=== PATIENT | female | born 1960 | race Caucasian/White ===

== ENCOUNTER 2018-12-11 09:18 | Day surgery (SDC) | payer OTHER ==
[2018-12-10 14:44] VITALS: BMI 34.6
[2018-12-11 11:16] VITALS: TEMP 98
[2018-12-11 14:33] VITALS: BP 122/71; PULSE 71
--- NOTE | 2018-12-14 20:00 | PATH ---
Surgical Pathology Report Patient Name: CARLOS CARNEY [facility]. Rec. #: [id number] /Age/Gender: 1960 (Age: 58) / F Account: [id number] Location: U-ENDOSCOPY Taken: 12/11/2018 Received: 12/11/2018 Reported: 12/14/2018 Physicians: Yu Abarca M.D. Specimen(s) Received A: POLYP ANASTOMOSIS B: AFFERENT LOOP C: ANASTOMOSIS Clinical History History of GERD with Cruz's, history of colon adenoma, abdominal pain, rule out ulcer Postoperative diagnosis: Gastric bypass anastomosis, anastomotic polyp, GERD, diverticulosis Final Diagnosis A. ANASTOMOTIC POLYP, BIOPSY: POLYPOID GASTRIC BODY MUCOSA WITH MILD CHRONIC GASTRITIS. IMMUNOHISTOCHEMICAL STAIN FOR H. PYLORI IS NEGATIVE. B. AFFERENT LOOP, BIOPSY: SMALL BOWEL MUCOSA WITHOUT SIGNIFICANT PATHOLOGIC FINDINGS. C. ANASTOMOSIS, BIOPSY: GASTRIC MUCOSA WITH MODERATE TO SEVERE CHRONIC GASTRITIS. IMMUNOHISTOCHEMICAL STAIN FOR H. PYLORI IS NEGATIVE. DETACHED SQUAMOUS MUCOSA WITH MODERATE BASAL CELL HYPERPLASIA Electronically Signed Elena Azar M.D. Gross Description A. Received in formalin, labeled "anastomotic polyp" are 2 lomax, irregular portions of soft tissue measuring 0.1 and 0.2 cm. in greatest dimension. The specimens are submitted in toto in one cassette. B. Received in formalin, labeled "aferrent loop" are 3 lomax, irregular portions of soft tissue measuring 0.1 and 0.3 cm. in greatest dimension. The specimens are submitted in toto in one cassette. C. Received in formalin, labeled "BX anastomosis" are 5 lomax, irregular portions of soft tissue measuring 0.1 and 0.2 cm. in greatest dimension. The specimens are submitted in toto in one cassette. MLSZ/12/11/2018 sanml/12/11/2018
== END 2018-12-11 12:23 | disposition home or self-care (01) ==
LOC: JASU-ENDO 09:18
PROVIDERS: ATTEND Internal Medicine Gastroenterology
PROC: 0DB68ZX Excision of Stomach, Via Natural or Artificial Opening Endoscopic, Diagnostic (ICD-10-PCS; 2018-12-11)
PROC: 0DJD8ZZ Inspection of Lower Intestinal Tract, Via Natural or Artificial Opening Endoscopic (ICD-10-PCS; principal; 2018-12-11 10:00)
DX: Z12.11 Encounter for screening for malignant neoplasm of colon (principal); Z86.010 Personal history of colon polyps; K57.30 Diverticulosis of large intestine without perforation or abscess without bleeding; K64.8 Other hemorrhoids; K63.89 Other specified diseases of intestine; R10.13 Epigastric pain; Z98.84 Bariatric surgery status; K21.9 Gastro-esophageal reflux disease without esophagitis; K44.9 Diaphragmatic hernia without obstruction or gangrene; E11.9 Type 2 diabetes mellitus without complications; Z79.84 Long term (current) use of oral hypoglycemic drugs; E03.9 Hypothyroidism, unspecified
CPT/HCPCS: 43239; G0105; 82962

== ENCOUNTER 2020-04-14 04:53 | Day surgery (SDC) | payer OTHER ==
[2020-04-13 12:24] VITALS: BMI 33.1
[2020-04-14] MEDS ORDERED: TRIAMCINOLONE ACET 40MG/1ML VIAL ONE (07:23)
[2020-04-14] MEDS ORDERED: LIDOCAINE HCL 1%, 10 MG/ML (20ML VIAL) ONE (07:24)
[2020-04-14] MEDS ORDERED: BUPIVACAINE HCL/PF 0.75% 10 ML VIAL ONE (07:26)
[2020-04-14] MEDS ORDERED: MIDAZOLAM HCL 2 MG/2 ML SINGLE DOSE VIAL ONE ×2 (08:05→08:20)
[2020-04-14] MEDS ORDERED: SUCCINYLCHOLINE CHLORIDE 200 MG/10 ML SYRINGE ONE (08:05)
[2020-04-14] MEDS ORDERED: PROPOFOL 20 ML ONE ×2 (08:05→08:18)
--- NOTE | 2020-04-14 08:07 | HP ---
Admitting History and Physical - Admission Chief Complaint: Left Low back pain History of Present Illness: Pt complains of left buttock and low back pain - Past Medical History ...LMP: 11/14/11 - Smoking History Smoking history: Former smoker Have you smoked in the past 12 months: No Aproximately how many cigarettes per day: 10 If you are a former smoker, when did you quit?: 2014 - Alcohol/Substance Use Hx Alcohol Use: Yes (SOCIAL) Home Medications - Allergies Allergies/Adverse Reactions: Allergies Allergy/AdvReac Type Severity Reaction Status Date / Time No Known Allergies Allergy Verified 05/31/13 08:10 - Home Medications Home Medications: Ambulatory Orders Simvastatin [Zocor] 20 mg PO DAILY 12/04/11 Zolpidem Tartrate [Ambien] 10 mg PO DAILY 12/04/11 Amlodipine Besylate [Norvasc -] 5 mg PO DAILY 05/31/13 Exenatide Microspheres [Bydureon Pen] 2 mg SUBCON WEEKLY 12/10/18 LORazepam [Ativan] 1 mg PO DAILY 12/10/18 metFORMIN HCL [Metformin HCl] 500 mg PO BID 12/10/18 Losartan Potassium 100 mg PO DAILY 12/11/18 Mag Carb/Aluminum Hydrox/Algin [Gaviscon Liquid] 30 ml PO Q4H PRN #355 oz 12/11/18 Levothyroxine [Synthroid -] 224 mcg PO DAILY 04/13/20 Pantoprazole Sodium 40 mg PO DAILY 04/13/20 Review of Systems - Review of Systems Constitutional: reports: No Symptoms Eyes: reports: No Symptoms HENT: reports: No Symptoms Neck: reports: No Symptoms Cardiovascular: reports: No Symptoms Respiratory: reports: No Symptoms Gastrointestinal: reports: No Symptoms Genitourinary: reports: No Symptoms Breasts: reports: No Symptoms Reported Musculoskeletal: reports: Back Pain Integumentary: reports: No Symptoms Neurological: reports: No Symptoms Endocrine: reports: No Symptoms Hematology/Lymphatic: reports: No Symptoms Psychiatric: reports: No Symptoms Physical Examination Vital Signs: Vital Signs Temperature 98.0 F 04/14/20 06:59 Pulse Rate 87 04/14/20 06:59 Respiratory Rate 16 04/14/20 06:59 Blood Pressure 148/52 L 04/14/20 06:59 O2 Sat by Pulse Oximetry (%) 99 04/14/20 06:59 Constitutional: Yes: Well Nourished, No Distress, Calm Eyes: Yes: Conjunctiva Clear, EOM Intact HENT: Yes: Atraumatic, Normocephalic Neck: Yes: Trachea Midline Cardiovascular: Yes: Regular Rate and Rhythm Respiratory: Yes: Regular Gastrointestinal: Yes: Soft Breast(s): Yes: WNL Musculoskeletal: Yes: Back Pain Extremities: Yes: WNL Neurological: Yes: WNL ...Motor Strength: WNL Imaging - Results X-ray: Report Reviewed, Image Reviewed Assessment/Plan 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 I will perform left SIJ injection under fluoroscopic guidance.
[2020-04-14] MEDS ORDERED: LIDOCAINE HCL 1%, 10 MG/ML (20ML VIAL) INF ONE (08:24)
[2020-04-14] MEDS ORDERED: IOHEXOL 180 MG/1 ML ML IJ ONE (08:25)
[2020-04-14] MEDS ORDERED: BUPIVACAINE HCL/PF 0.5% (5 MG/ML) 30 ML VIAL IJ ONE (08:27)
[2020-04-14] MEDS ORDERED: TRIAMCINOLONE ACET 40MG/1ML VIAL IM ONE (08:27)
--- NOTE | 2020-04-14 08:34 | PROC ---
Procedure Note Procedure: Pre procedure Diagnosis: Sacroilliac Joint Dysfunction Post Procedure Diagnosis: same Anesthesia: local Procedure Performed: Left Sacroilliac Joint Injection Under Fluoroscopic Guidance After the risks and benefits were explained, informed consent was obtained. The patient was then taken to the procedure room and positioned prone on the procedure table. Time out was performed. The region overlying the Left sacroiliac joint was identified using fluoroscopy. The skin was prepped and draped in the usual sterile fashion. The skin and soft tissues were anesthetized using 2% lidocaine. Using fluoroscopic guidance, a 22 gauge 3.5 inch spinal needle was then introduced to the inferior aspect of the posterior Right sacroiliac joint. Omnipaque 180 confirmed appropriate needle placement. 1 cc .5% bupivacaine and 1 cc Kenalog was then injected. The patient tolerated the procedure well and there were no complications. The patient was taken to the post procedure recovery area in good condition. Vital signs remained stable before, during, and after the procedure. The patient was given oral and written follow-up instructions. The patient was given a follow up appointment with me in the near future. Joe Davis DO
[2020-04-14] MEDS ORDERED: oxyCODONE HCL 5 MG TABLET PO PRN ×2 (08:41)
[2020-04-14] MEDS ORDERED: ACETAMINOPHEN 325 MG TABLET (FP) PO PRN (08:41)
[2020-04-14] MEDS ORDERED: ONDANSETRON 4 MG/2 ML VIAL IVPUSH PRN (08:41)
[2020-04-14] MEDS ORDERED: LACTATED RINGERS SOLUTION 1,000 ML IV SCH (08:45)
[2020-04-14 09:26] VITALS: BP 121/71; PULSE 73; TEMP 97.3
== END 2020-04-14 09:43 | disposition home or self-care (01) ==
LOC: JASU-SURG 04:53
PROVIDERS: ATTEND Pain Medicine Pain Medicine
PROC: 3E0U3BZ Introduction of Anesthetic Agent into Joints, Percutaneous Approach (ICD-10-PCS; 2020-04-14)
PROC: 3E0U33Z Introduction of Anti-inflammatory into Joints, Percutaneous Approach (ICD-10-PCS; principal; 2020-04-14 08:00)
DX: M53.3 Sacrococcygeal disorders, not elsewhere classified (principal); M54.5 Low back pain; M25.552 Pain in left hip; M41.27 Other idiopathic scoliosis, lumbosacral region
CPT/HCPCS: 76000-TC-FY

== ENCOUNTER 2020-04-21 06:45 | Day surgery (SDC) | payer OTHER ==
[2020-04-21] MEDS ORDERED: FERRIC CARBOXYMALTOSE 750 MG in SODIUM CHLORIDE 250 ML IVPB ONE (10:00)
[2020-04-21 15:44] VITALS: BP 132/75; PULSE 90; TEMP 98.2
== END 2020-04-21 15:46 | disposition home or self-care (01) ==
LOC: JONCNONCHE 06:45 → JONCCHEMO 06:45 → JONCNONCHE 15:46
PROVIDERS: ATTEND Internal Medicine Hematology & Oncology
DX: D50.9 Iron deficiency anemia, unspecified (principal)
CPT/HCPCS: 96365; J1439

== ENCOUNTER 2020-04-28 06:53 | Day surgery (SDC) | payer OTHER ==
[2020-04-28] MEDS ORDERED: FERRIC CARBOXYMALTOSE 750 MG in SODIUM CHLORIDE 250 ML IVPB ONE (10:00)
[2020-04-28 17:46] VITALS: TEMP 98.5
[2020-04-28 17:47] VITALS: BP 141/74; PULSE 84
== END 2020-04-28 17:00 | disposition home or self-care (01) ==
LOC: JONCNONCHE 06:53
PROVIDERS: ATTEND Internal Medicine Hematology & Oncology
PROC: 3E033GC Introduction of Other Therapeutic Substance into Peripheral Vein, Percutaneous Approach (ICD-10-PCS; principal; 2020-04-28)
DX: D50.9 Iron deficiency anemia, unspecified (principal)
CPT/HCPCS: 96365; J1439

== ENCOUNTER 2021-03-16 04:32 | Day surgery (SDC) | payer OTHER ==
[~2021-03-16 04:32] MED LIST: BUPIVACAINE HCL/PF 0.5% (5MG/ML) 10 ML VIAL IJ ONE; IOHEXOL 180 MG/1 ML ML IJ ONE; TRIAMCINOLONE ACET 40MG/1ML VIAL IJ ONE
[2021-03-16 07:22] VITALS: TEMP 97.9
[2021-03-16 08:37] VITALS: BMI 32.8
[2021-03-16] MEDS ORDERED: LIDOCAINE HCL 1% PRESERVATIVE FREE - 30ML VIAL IJ ONE (08:55)
[2021-03-16] MEDS ORDERED: BUPIVACAINE HCL/PF 0.5% (5MG/ML) 10 ML VIAL IJ ONE (08:55)
[2021-03-16] MEDS ORDERED: IOHEXOL 180 MG/1 ML ML IJ ONE (08:56)
[2021-03-16] MEDS ORDERED: TRIAMCINOLONE ACET 40MG/1ML VIAL IJ ONE (08:59)
[2021-03-16 09:27] VITALS: BP 140/70; PULSE 80
== END 2021-03-16 09:28 | disposition home or self-care (01) ==
LOC: JASU-SURG 04:32
PROVIDERS: ATTEND Pain Medicine Pain Medicine
PROC: 3E0U3BZ Introduction of Anesthetic Agent into Joints, Percutaneous Approach (ICD-10-PCS; 2021-03-16)
PROC: 3E0U33Z Introduction of Anti-inflammatory into Joints, Percutaneous Approach (ICD-10-PCS; principal; 2021-03-16 08:45)
DX: M53.3 Sacrococcygeal disorders, not elsewhere classified (principal); M41.27 Other idiopathic scoliosis, lumbosacral region; M54.5 Low back pain
CPT/HCPCS: 76000-TC-FY

== ENCOUNTER 2021-04-20 04:14 | Day surgery (SDC) | payer OTHER ==
[2021-04-18 14:29] VITALS: BMI 32.8
[~2021-04-20 04:14] MED LIST changes: -BUPIVACAINE HCL/PF 0.5% (5MG/ML) 10 ML VIAL IJ ONE; +BUPIVACAINE HCL/PF 0.75% 10 ML VIAL NR ONE; +DEXAMETHASONE SOD PHOSPHATE 10 MG/1 ML VIAL IM ONE; -IOHEXOL 180 MG/1 ML ML IJ ONE; -TRIAMCINOLONE ACET 40MG/1ML VIAL IJ ONE
[2021-04-20] MEDS ORDERED: LIDOCAINE HCL/PF 1% SDV 5ML VIAL ONE (07:07)
[2021-04-20] MEDS ORDERED: TRIAMCINOLONE ACET 40MG/1ML VIAL ONE (07:07)
[2021-04-20] MEDS ORDERED: BUPIVACAINE HCL/PF 0.25% (2.5MG/ML) 10 ML VIAL ONE (07:08)
[2021-04-20] MEDS ORDERED: BUPIVACAINE HCL/PF 0.5% (5MG/ML) 10 ML VIAL ONE (07:08)
[2021-04-20] MEDS ORDERED: MIDAZOLAM HCL 2 MG/2 ML SINGLE DOSE VIAL ONE ×2 (08:46→08:55)
[2021-04-20] MEDS ORDERED: IOHEXOL 180 MG/1 ML ML IJ ONE (08:57)
[2021-04-20] MEDS ORDERED: LIDOCAINE HCL 1% PRESERVATIVE FREE - 30ML VIAL NR ONE ×3 (08:57→09:38)
[2021-04-20] MEDS ORDERED: DEXAMETHASONE SOD PHOSPHATE 10 MG/1 ML VIAL IM ONE ×2 (09:38→09:59)
[2021-04-20] MEDS ORDERED: BUPIVACAINE HCL/PF 0.75% 10 ML VIAL NR ONE ×3 (09:38→09:59)
[2021-04-20] MEDS ORDERED: LIDOCAINE HCL/PF 2% SDV 5ML VIAL INF ONE (09:59)
[2021-04-20 11:28] VITALS: BP 151/67; PULSE 71; TEMP 98.1
== END 2021-04-20 11:10 | disposition home or self-care (01) ==
LOC: JASU-SURG 04:14
PROVIDERS: ATTEND Pain Medicine Pain Medicine
PROC: 0S5 Lower Joints, Destruction (ICD-10-PCS; principal; 2021-04-20 08:30)
DX: M53.3 Sacrococcygeal disorders, not elsewhere classified (principal)
CPT/HCPCS: 76000-TC-FY; J1100

== ENCOUNTER 2021-05-16 15:01 | Day surgery (SDC) | payer OTHER ==
[2021-05-16] MEDS ORDERED: FERRIC CARBOXYMALTOSE 750 MG in SODIUM CHLORIDE 250 ML IVPB ONE (17:15)
[2021-05-16] MEDS ORDERED: SODIUM CHLORIDE 250 ML IV ONE ×2 (17:15→17:30)
[2021-05-16 19:20] VITALS: BP 116/68; PULSE 73; TEMP 98.3
== END 2021-05-16 19:20 | disposition home or self-care (01) ==
LOC: JONCNONCHE 15:01
PROVIDERS: ATTEND Internal Medicine Hematology & Oncology
PROC: 3E033GC Introduction of Other Therapeutic Substance into Peripheral Vein, Percutaneous Approach (ICD-10-PCS; principal; 2021-05-16)
DX: D50.9 Iron deficiency anemia, unspecified (principal)
CPT/HCPCS: 96365; J1439

== ENCOUNTER 2021-05-18 04:38 | Day surgery (SDC) | payer OTHER ==
[2021-05-17 15:22] VITALS: BMI 32.8
[2021-05-18] MEDS ORDERED: LIDOCAINE HCL/PF 1% SDV 5ML VIAL ONE (07:24)
[2021-05-18] MEDS ORDERED: BUPIVACAINE HCL/PF 0.75% 10 ML VIAL ONE (07:25)
[2021-05-18 09:36] VITALS: TEMP 97.2
[2021-05-18] MEDS ORDERED: MIDAZOLAM HCL 2 MG/2 ML SINGLE DOSE VIAL ONE ×3 (10:03→10:22)
[2021-05-18] MEDS ORDERED: BUPIVACAINE HCL/PF 0.75% 10 ML VIAL NR ONE (10:03)
[2021-05-18] MEDS ORDERED: LIDOCAINE 1% P/F 10 MG/ML VIAL INF ONE (10:03)
[2021-05-18] MEDS ORDERED: IOHEXOL 180 MG/1 ML ML IJ ONE (10:04)
[2021-05-18] MEDS ORDERED: ONDANSETRON 4 MG/2 ML VIAL ONE (10:18)
[2021-05-18 12:49] VITALS: BP 126/60; PULSE 70
== END 2021-05-18 11:40 | disposition home or self-care (01) ==
LOC: JASU-SURG 04:38
PROVIDERS: ATTEND Pain Medicine Pain Medicine
PROC: 3E0T33Z Introduction of Anti-inflammatory into Peripheral Nerves and Plexi, Percutaneous Approach (ICD-10-PCS; 2021-05-18)
PROC: 3E0T3BZ Introduction of Anesthetic Agent into Peripheral Nerves and Plexi, Percutaneous Approach (ICD-10-PCS; principal; 2021-05-18 12:30)
DX: M47.816 Spondylosis without myelopathy or radiculopathy, lumbar region (principal)
CPT/HCPCS: 76000-TC-FY

== ENCOUNTER 2021-05-24 07:24 | Day surgery (SDC) | payer OTHER ==
[~2021-05-24 07:24] MED LIST changes: -BUPIVACAINE HCL/PF 0.75% 10 ML VIAL NR ONE; -DEXAMETHASONE SOD PHOSPHATE 10 MG/1 ML VIAL IM ONE; +FERRIC CARBOXYMALTOSE 750 MG in SODIUM CHLORIDE 250 ML IVPB ONE; +SODIUM CHLORIDE 250 ML IV ONE
[2021-05-24] MEDS ORDERED: FERRIC CARBOXYMALTOSE 750 MG in SODIUM CHLORIDE 250 ML IVPB ONE (16:15)
[2021-05-24] MEDS ORDERED: SODIUM CHLORIDE 250 ML IV ONE (16:15)
[2021-05-24 16:54] VITALS: TEMP 98.1
[2021-05-24 17:09] VITALS: BP 115/69; PULSE 70
== END 2021-05-24 17:30 | disposition home or self-care (01) ==
LOC: JONCNONCHE 07:24
PROVIDERS: ATTEND Internal Medicine Hematology & Oncology
PROC: 3E033GC Introduction of Other Therapeutic Substance into Peripheral Vein, Percutaneous Approach (ICD-10-PCS; principal; 2021-05-24)
DX: D50.9 Iron deficiency anemia, unspecified (principal)
CPT/HCPCS: 96365; J1439

== ENCOUNTER 2021-06-12 04:30 | Day surgery (SDC) | payer OTHER ==
[2021-06-08 14:12] VITALS: BMI 32.8
[~2021-06-12 04:30] MED LIST changes: +BUPIVACAINE HCL/PF 0.75% 10 ML VIAL NR ONE; -FERRIC CARBOXYMALTOSE 750 MG in SODIUM CHLORIDE 250 ML IVPB ONE; +IOHEXOL 180 MG/1 ML ML IJ ONE; +LIDOCAINE HCL 1% PRESERVATIVE FREE - 30ML VIAL IJ ONE; -SODIUM CHLORIDE 250 ML IV ONE
[2021-06-12] MEDS ORDERED: MIDAZOLAM HCL 2 MG/2 ML SINGLE DOSE VIAL ONE (09:52)
[2021-06-12] MEDS ORDERED: LIDOCAINE HCL/PF 2% SDV 5ML VIAL ONE (10:11)
[2021-06-12] MEDS ORDERED: PROPOFOL 20 ML ONE ×2 (10:11)
[2021-06-12] MEDS ORDERED: LIDOCAINE HCL 1% PRESERVATIVE FREE - 30ML VIAL IJ ONE (10:16)
[2021-06-12] MEDS ORDERED: IOHEXOL 180 MG/1 ML ML IJ ONE (10:20)
[2021-06-12] MEDS ORDERED: BUPIVACAINE HCL/PF 0.75% 10 ML VIAL NR ONE (10:24)
[2021-06-12 11:27] VITALS: BP 133/67; PULSE 97; TEMP 97.7
[2021-06-12] MEDS ORDERED: LIDOCAINE HCL/PF 1% SDV 5ML VIAL ONE (12:20)
== END 2021-06-12 11:35 | disposition home or self-care (01) ==
LOC: JASU-SURG 04:30
PROVIDERS: ATTEND Pain Medicine Pain Medicine
PROC: BR16YZZ Fluoroscopy of Lumbar Facet Joint(s) using Other Contrast (ICD-10-PCS; 2021-06-12)
PROC: 3E0T3BZ Introduction of Anesthetic Agent into Peripheral Nerves and Plexi, Percutaneous Approach (ICD-10-PCS; principal; 2021-06-12 10:30)
DX: M47.816 Spondylosis without myelopathy or radiculopathy, lumbar region (principal)
CPT/HCPCS: 76000-TC-FY

== ENCOUNTER 2023-01-07 04:07 | Day surgery (SDC) | payer OTHER ==
[2023-01-06 12:16] VITALS: BMI 28.3
[2023-01-07] MEDS ORDERED: LIDOCAINE HCL/PF 1% SDV 5ML VIAL ONE (07:47)
[2023-01-07] MEDS ORDERED: LIDOCAINE HCL 1% PRESERVATIVE FREE - 30ML VIAL IJ ONE ×2 (08:12→09:31)
[2023-01-07 10:24] VITALS: RESP 20
[2023-01-07 10:46] VITALS: BP 127/75; PULSE 74; TEMP 98
[2023-01-07] MEDS ORDERED: ACETAMINOPHEN 500 MG TABLET (FP) PO PRN (13:38)
== END 2023-01-07 10:46 | disposition home or self-care (01) ==
LOC: JASU-SURG 04:07
PROVIDERS: ATTEND Pain Medicine Pain Medicine
PROC: 01HY3MZ Insertion of Neurostimulator Lead into Peripheral Nerve, Percutaneous Approach (ICD-10-PCS; principal; 2023-01-07 08:45)
DX: G89.4 Chronic pain syndrome (principal); M54.59 Other low back pain
CPT/HCPCS: 64555; C1778; 76000-TC-FY

== ENCOUNTER 2023-02-11 04:54 | Day surgery (SDC) | payer OTHER ==
[2023-02-10 09:13] VITALS: BMI 28.3
[2023-02-11 06:22] VITALS: RESP 18
[2023-02-11] MEDS ORDERED: BUPIVACAINE HCL/PF 0.5% (5MG/ML) 10 ML VIAL ONE (07:23)
[2023-02-11] MEDS ORDERED: DEXAMETHASONE SOD PHOSPHATE 4 MG/1 ML VIAL ONE (07:23)
[2023-02-11] MEDS ORDERED: BUPIVACAINE HCL/PF 0.75% 10 ML VIAL ONE (07:24)
[2023-02-11] MEDS ORDERED: DEXAMETHASONE SOD PHOSPHATE 10 MG/1 ML VIAL ONE (07:24)
[2023-02-11] MEDS ORDERED: LIDOCAINE HCL 1% PRESERVATIVE FREE - 30ML VIAL IJ ONE (08:30)
[2023-02-11 10:41] VITALS: BP 132/68; PULSE 73; TEMP 98
[2023-02-11] MEDS ORDERED: ACETAMINOPHEN 500 MG TABLET (FP) PO PRN (15:59)
== END 2023-02-11 09:28 | disposition home or self-care (01) ==
LOC: JASU-SURG 04:54
PROVIDERS: ATTEND Pain Medicine Pain Medicine
PROC: 01HY3MZ Insertion of Neurostimulator Lead into Peripheral Nerve, Percutaneous Approach (ICD-10-PCS; principal; 2023-02-11 08:00)
DX: G89.4 Chronic pain syndrome (principal); M54.50 Low back pain, unspecified
CPT/HCPCS: 64555; C1778; 76000-TC-FY; J1100

== ENCOUNTER 2023-12-05 03:57 | Day surgery (SDC) | payer OTHER ==
[2023-12-03 16:55] VITALS: BMI 28.3
[2023-12-05] MEDS ORDERED: LIDOCAINE HCL/PF 1% SDV 5ML VIAL ONE (07:22)
[2023-12-05 07:39] VITALS: RESP 20
[2023-12-05] MEDS ORDERED: MIDAZOLAM HCL 2 MG/2 ML SINGLE DOSE VIAL ONE ×3 (10:49→11:15)
[2023-12-05] MEDS ORDERED: FENTANYL CITRATE/PF 50 MCG/ML VIAL ONE ×2 (10:49→11:13)
[2023-12-05] MEDS ORDERED: ceFAZolin SODIUM 1 GM VIAL ONE (11:12)
[2023-12-05] MEDS: LIDOCAINE HCL/PF 2% SDV 5ML VIAL INF ONE ×2 (11:17)
[2023-12-05] MEDS: LIDOCAINE HCL 1% PRESERVATIVE FREE - 30ML VIAL INF ONE ×4 (11:17)
[2023-12-05] MEDS ORDERED: ONDANSETRON 4 MG/2 ML VIAL ONE (11:17)
[2023-12-05] MEDS ORDERED: ACETAMINOPHEN 500 MG TABLET (FP) PO PRN (13:26)
[2023-12-05 14:00] VITALS: BP 128/70; PULSE 82; TEMP 97.8
== END 2023-12-05 13:20 | disposition home or self-care (01) ==
LOC: JASU-SURG 03:57
PROVIDERS: ATTEND Pain Medicine Pain Medicine
PROC: 00HV3MZ Insertion of Neurostimulator Lead into Spinal Cord, Percutaneous Approach (ICD-10-PCS; principal; 2023-12-05 12:15)
DX: G89.4 Chronic pain syndrome (principal); M54.16 Radiculopathy, lumbar region; M41.9 Scoliosis, unspecified; M54.59 Other low back pain
CPT/HCPCS: 63650; C1897; 76000-TC-FY; C1889

== ENCOUNTER 2024-09-24 05:19 | Day surgery (SDC) | payer OTHER ==
[2024-09-21 13:31] VITALS: BMI 29.1
[2024-09-24] MEDS ORDERED: VANCOMYCIN 1,000 MG VIAL (RESTRICTED TO ID ONLY) ONE (08:22)
[2024-09-24] MEDS ORDERED: ACETAMINOPHEN 500 MG TABLET (FP) PO PRN (08:30)
[2024-09-24] MEDS ORDERED: DEXMEDETOMIDINE HCL 200 MCG/2 ML IVPB ONE (09:30)
[2024-09-24] MEDS ORDERED: MIDAZOLAM HCL 2 MG/2 ML SINGLE DOSE VIAL ONE ×2 (10:05→10:49)
[2024-09-24] MEDS ORDERED: ceFAZolin SODIUM 1 GM VIAL ONE (10:13)
[2024-09-24] MEDS: LIDOCAINE 1% P/F 10 MG/ML VIAL INF ONE ×4 (10:44→12:16)
[2024-09-24] MEDS: VANCOMYCIN 1,000 MG VIAL (RESTRICTED TO ID ONLY) IVPB ONE (11:35)
[2024-09-24] MEDS ORDERED: ONDANSETRON 4 MG/2 ML VIAL IVPUSH PRN (14:34)
[2024-09-24] MEDS ORDERED: LACTATED RINGERS SOLUTION 1,000 ML IV SCH (14:45)
[2024-09-24] MEDS ORDERED: oxyCODONE HCL 5 MG TABLET ONE (15:22)
[2024-09-24] MEDS: oxyCODONE HCL 5 MG TABLET PO PRN (15:24)
[2024-09-24 16:15] VITALS: RESP 18
[2024-09-24 18:05] VITALS: BP 101/60; PULSE 79; TEMP 97.9
== END 2024-09-24 17:47 | disposition home or self-care (01) ==
LOC: JASU-SURG 05:19
PROVIDERS: ATTEND Pain Medicine Pain Medicine
PROC: 00HV3MZ Insertion of Neurostimulator Lead into Spinal Cord, Percutaneous Approach (ICD-10-PCS; 2024-09-24)
PROC: 0JPT3MZ Removal of Stimulator Generator from Trunk Subcutaneous Tissue and Fascia, Percutaneous Approach (ICD-10-PCS; 2024-09-24)
PROC: 0JH73BZ Insertion of Single Array Stimulator Generator into Back Subcutaneous Tissue and Fascia, Percutaneous Approach (ICD-10-PCS; 2024-09-24)
PROC: 00PV3MZ Removal of Neurostimulator Lead from Spinal Cord, Percutaneous Approach (ICD-10-PCS; principal; 2024-09-24 10:44)
DX: G89.4 Chronic pain syndrome (principal); M41.27 Other idiopathic scoliosis, lumbosacral region; M54.16 Radiculopathy, lumbar region; M54.50 Low back pain, unspecified; I10 Essential (primary) hypertension
CPT/HCPCS: 63663; 63685; 63688; C1778; L8679; 76000-TC-FY; 94760; C1767